=== PATIENT | male | born 1975 | race Caucasian/White ===

== ENCOUNTER 2023-06-02 06:42 | Observation (INO) | payer OTHER ==
[2023-06-02] MEDS ORDERED: Ondansetron 4 MG/2 ML SDV IVPUSH ONE (07:21)
[2023-06-02] MEDS ORDERED: Acetaminophen 500 MG Tab PO ONE (07:33)
[2023-06-02] MEDS ORDERED: Ketorolac 30 MG/ML SDV IVPUSH ONE (07:33)
[2023-06-02 07:40] LABS: BASOPHILS PERCENT AUTO 0.1 % (0.0-1.0); EOSINOPHILS PERCENT AUTO 0.4 % (1.0-3.0); HEMOGLOBIN 15.8 g/dL (14.0-18.0); LYMPHOCYTES PERCENT AUTO 9.3 % (20.5-50.1); MEAN CORPUSCULAR HEMOGLOBIN 29.9 pg (27.0-34.0); MEAN CORPUSCULAR HGB CONC 34.3 g/dL (33.0-35.0); MEAN CORPUSCULAR VOLUME 87.1 fL (80-100); MONOCYTES PERCENT AUTO 9.8 % (2-8); NEUTROPHILS PERCENT AUTO 80.4 % (42.2-75.2); PLATELET COUNT,PLT 171 10^3/uL (150-450); RED BLOOD CELL COUNT 5.28 10^6/uL (4.6-6.2); WHITE BLOOD CELL COUNT,WBC 22.3 10^3/uL (5.0-10.0)
[2023-06-02] MEDS ORDERED: Lactated Ringers 1,000 ML IV SCH ×2 (07:45→08:15)
[2023-06-02 07:48] LABS: A/G RATIO 0.9; ALBUMIN 3.7 g/dL (3.4-5.0); ANION GAP 18.3 mEq/L (7-13); BILIRUBIN TOTAL 1.5 mg/dL (0.2-1.0); BUN/CREATININE RATIO 12.1 (No establ ref range); CALCIUM 8.4 mg/dL (8.5-10.1); CREATININE 0.99 mg/dL (0.70-1.30); EST CRCL DRUG DOSING (CG) 99.3 mL/min; MAGNESIUM 1.7 mg/dL (1.8-2.4); POTASSIUM,K 3.3 mmol/L (3.5-5.1); PROTEIN TOTAL,TP 7.7 g/dL (6.4-8.2)
[2023-06-02] MEDS ORDERED: Piperacillin/Tazobactam 4.5 GM in Sodium Chloride 0.9% 100 ML IV ONE (07:56)
[2023-06-02] MEDS ORDERED: Magnesium Sulfate/Water 2 GM in Premix Bag 1 BAG IV ONE (08:02)
[2023-06-02 08:23] LABS: LACTIC ACID 2.1 mmol/L (0.4-2.0)
[2023-06-02] MEDS ORDERED: hydrALAZINE 20 MG/ML SDV IVPUSH PRN (11:16)
[2023-06-02] MEDS ORDERED: Metoprolol Tartrate 5 MG/5 ML SDV IVPUSH PRN (11:16)
[2023-06-02] MEDS ORDERED: Acetaminophen/Butalbital/Caffeine 325-50-40 MG Tab PO PRN (11:17)
[2023-06-02] MEDS ORDERED: Temazepam 15 MG Cap PO PRN (11:18)
[2023-06-02] MEDS ORDERED: Acetaminophen/oxyCODONE 325-5 MG Tab PO PRN (11:18)
[2023-06-02] MEDS ORDERED: Ondansetron 4 MG/2 ML SDV IVPUSH PRN (11:18)
[2023-06-02] MEDS ORDERED: HYDROmorphone 0.5 MG/0.5 ML Syringe IVPUSH PRN (11:18)
[2023-06-02] MEDS ORDERED: Albuterol/Ipratropium 3.0-0.5 MG/3 ML Neb Soln NEB PRN (11:18)
[2023-06-02] MEDS ORDERED: Potassium Chloride 10 MEQ Tab.ER PO ONE (11:21)
[2023-06-02] MEDS ORDERED: Scopolamine 1.5 MG Transdermal Patch TOP ONE (11:35)
[2023-06-02] MEDS ORDERED: Metoprolol Tartrate 25 MG Tab PO ONE (12:25)
[2023-06-02] MEDS: Piperacillin/Tazobactam 3.375 GM in Sodium Chloride 0.9% 100 ML IV SCH ×3 (12:49→23:58)
[2023-06-02] MEDS ORDERED: MVI, Adult with Vitamin K 10 ML, Folic Acid 1 MG, Thiamine 100 MG in Lactated Ringers 1... IV ONE ×4 (13:27)
[2023-06-02] MEDS ORDERED: Dextrose 5%-0.9% NaCl 1,000 ML IV SCH (13:30)
[2023-06-02] MEDS: Ibuprofen 600 MG Tab PO PRN ×2 (14:04→20:07)
[2023-06-02] MEDS ORDERED: Ketorolac 30 MG/ML SDV IVPUSH PRN (18:49)
[2023-06-02] MEDS: Saccharomyces Boulardii (Probiotic) 250 MG Cap PO SCH (20:54)
[2023-06-02] MEDS: Metoprolol Tartrate 25 MG Tab PO SCH (20:54)
[2023-06-03] MEDS: Ibuprofen 600 MG Tab PO PRN ×3 (02:10→15:45)
[2023-06-03] MEDS: Piperacillin/Tazobactam 3.375 GM in Sodium Chloride 0.9% 100 ML IV SCH ×2 (05:37→11:49)
[2023-06-03 06:16] LABS: BASOPHILS PERCENT AUTO 0.2 % (0.0-1.0); EOSINOPHILS PERCENT AUTO 1.7 % (1.0-3.0); HEMATOCRIT 37.9 % (40.0-54.0); HEMOGLOBIN 12.9 g/dL (14.0-18.0); LYMPHOCYTES PERCENT AUTO 12.7 % (20.5-50.1); MEAN CORPUSCULAR HEMOGLOBIN 30.1 pg (27.0-34.0); MEAN CORPUSCULAR VOLUME 88.3 fL (80-100); MONOCYTES PERCENT AUTO 11.1 % (2-8); NEUTROPHILS PERCENT AUTO 74.3 % (42.2-75.2); PLATELET COUNT,PLT 145 10^3/uL (150-450); RED BLOOD CELL COUNT 4.29 10^6/uL (4.6-6.2); WHITE BLOOD CELL COUNT,WBC 12.7 10^3/uL (5.0-10.0)
[2023-06-03 06:50] LABS: ALBUMIN 2.8 g/dL (3.4-5.0); ANION GAP 9.8 mEq/L (7-13); BILIRUBIN TOTAL 0.7 mg/dL (0.2-1.0); BUN/CREATININE RATIO 9.4 (No establ ref range); CALCIUM 7.7 mg/dL (8.5-10.1); CREATININE 1.17 mg/dL (0.70-1.30); EST CRCL DRUG DOSING (CG) 84.02 mL/min; MAGNESIUM 2.1 mg/dL (1.8-2.4); POTASSIUM,K 3.8 mmol/L (3.5-5.1)
[2023-06-03 07:07] LABS: A/G RATIO 0.88; C-REACTIVE PROTEIN 21.4 mg/dL (0.0-0.9)
[2023-06-03] MEDS: Saccharomyces Boulardii (Probiotic) 250 MG Cap PO SCH (08:32)
[2023-06-03] MEDS: Metoprolol Tartrate 25 MG Tab PO SCH (08:33)
[2023-06-03] MEDS ORDERED: Sennosides/Docusate Sodium 50-8.6 MG Tab PO PRN (15:33)
[2023-06-03] MEDS ORDERED: Sennosides/Docusate Sodium 50-8.6 MG Tab PO ONE (15:33)
[2023-06-03] MEDS ORDERED: Polyethylene Glycol 3350 Powder 17 GM Packet PO PRN (15:34)
[2023-06-03] MEDS ORDERED: Bisacodyl 10 MG Supp RECTAL PRN (15:34)
== END 2023-06-03 18:15 | disposition home or self-care (01) ==
LOC: DL.ED 06:42 → INTOOBSV 09:57 → DL.MS 09:57 → UNDOADMOB 09:57 → DL.MS 09:57 → DL.ED 10:16 → UNDOADMIN 10:21 → DL.MS 10:21
PROVIDERS: ADMIT Emergency Medicine; ATTEND Internal Medicine
DX: K57.92 Diverticulitis of intestine, part unspecified, without perforation or abscess without bleeding (principal); A41.9 Sepsis, unspecified organism; I48.91 Unspecified atrial fibrillation; D72.829 Elevated white blood cell count, unspecified; G44.209 Tension-type headache, unspecified, not intractable; E87.6 Hypokalemia; R73.9 Hyperglycemia, unspecified; E87.20 Acidosis, unspecified; E83.42 Hypomagnesemia; E80.6 Other disorders of bilirubin metabolism; F17.210 Nicotine dependence, cigarettes, uncomplicated
CPT/HCPCS: 36415; 80053; 83605; 83690; 83735; 85025; 86140; 93005; 96361; 96365; 96366; 96367; 96368; 96375; 96376; 99222; 99238; 99285; A9270; G0378; J1885; J2405; J2543; J3411; J3475; J3490; J7042; J7120

== ENCOUNTER 2024-11-18 16:10 | Emergency (ER) | payer OTHER ==
[2024-11-18] MEDS: Ondansetron 4 MG Tab.DIS PO ONE (16:40)
[2024-11-18] MEDS: Ketorolac 30 MG/ML SDV IM ONE (16:40)
[2024-11-18 16:43] LABS: APPEARANCE,URINE SLIGHTLY CLOUDY (CLEAR); BILIRUBIN,URINE NEGATIVE (NEGATIVE); COLOR,URINE YELLOW (YELLOW); GLUCOSE,URINE NEGATIVE (NEGATIVE); KETONES,URINE TRACE (NEGATIVE); LEUKOCYTE ESTERASE,URINE NEGATIVE (NEGATIVE); NITRITE,URINE NEGATIVE (NEGATIVE); OCCULT BLOOD,URINE LARGE (NEGATIVE); PH,URINE 8.5 (5.0-9.0); PROTEIN,URINE 30 (NEGATIVE); UROBILINOGEN,URINE 0.2 mg/dL (0.2-1.0)
[2024-11-18 17:01] LABS: BASOPHILS PERCENT AUTO 0.5 % (0.0-1.0); EOSINOPHILS PERCENT AUTO 3.9 % (1.0-3.0); HEMATOCRIT 47.7 % (40.0-54.0); HEMOGLOBIN 15.8 g/dL (14.0-18.0); LYMPHOCYTES PERCENT AUTO 29.4 % (20.5-50.1); MEAN CORPUSCULAR HEMOGLOBIN 29.2 pg (27.0-34.0); MEAN CORPUSCULAR HGB CONC 33.1 g/dL (33.0-35.0); NEUTROPHILS PERCENT AUTO 59.2 % (42.2-75.2); PLATELET COUNT,PLT 214 10^3/uL (150-450); RED BLOOD CELL COUNT 5.42 10^6/uL (4.6-6.2); WHITE BLOOD CELL COUNT,WBC 9.6 10^3/uL (5.0-10.0)
[2024-11-18 17:05] LABS: BACTERIA,URINE RARE /HPF (0-FEW/HPF); EPITHELIAL CELLS,URINE RARE /HPF (NOT SEEN); MUCUS,URINE FEW /LPF (NOT SEEN); RBC,URINE 40-50 /HPF (0-5); WBC,URINE 0-5 /HPF (0-5/HPF)
[2024-11-18 17:20] LABS: A/G RATIO 1.2; ALBUMIN 3.9 g/dL (3.4-5.0); ANION GAP 12.9 mEq/L (7-13); BILIRUBIN TOTAL 0.5 mg/dL (0.2-1.0); BUN/CREATININE RATIO 6.4 (No establ ref range); CALCIUM 8.5 mg/dL (8.5-10.1); CREATININE 1.41 mg/dL (0.70-1.30); EST CRCL DRUG DOSING (CG) 68.98 mL/min; POTASSIUM,K 3.9 mmol/L (3.5-5.1); PROTEIN TOTAL,TP 7.2 g/dL (6.4-8.2)
[2024-11-18] MEDS ORDERED: Sodium Chloride 0.9% 10 ML Syringe FLUSH PRN (17:32)
[2024-11-18] MEDS: HYDROmorphone 1 MG/ML Syringe IVPUSH ONE (17:35)
[2024-11-18] MEDS: Iopamidol 612 MG/ML 100 ML Bottle IVPUSH ONE (17:37)
[2024-11-18] MEDS: Lactated Ringers 1,000 ML IV ONE (17:38)
[2024-11-18] MEDS: Tamsulosin 0.4 MG Cap.ER PO ONE (19:38)
[2024-11-18] MEDS: Take Home: Tamsulosin HCl 0.4 MG, 6 Cap Pack PO ONE (20:00)
[2024-11-18] MEDS: Take Home: Ondansetron 4 MG Tab.DIS, 5 Tab Pack PO ONE (20:00)
[2024-11-18] MEDS: Take Home: Acetaminophen/oxyCODONE 325-5 MG, 5 Tab Pack PO ONE (20:00)
== END 2024-11-18 20:16 | disposition home or self-care (01) ==
LOC: DL.ED 16:10
DX: N13.2 Hydronephrosis with renal and ureteral calculous obstruction (principal); Q26.6 Portal vein-hepatic artery fistula
CPT/HCPCS: 36415; 51798; 74178; 80053; 81001; 85025; 96361; 96372; 96374; 99284; A9270; J1171; J1885; J7120; Q0162; Q9967